=== PATIENT | male | born 1950 | race American Indian/Alaskan Native ===

== ENCOUNTER 2019-05-26 13:45 | Inpatient (IN) | payer BC, OTHER ==
[~2019-05-26] VITALS: Ht 162.6 cm; Wt 79.4 kg
[2019-05-26 13:45] VITALS: BP_SYST 103
[2019-05-26 14:13] LABS: BASOPHILS # (AUTO) 0.1 K/uL (0.0-0.2); BASOPHILS % (AUTO) 0.7 % (0.0-2.0); EOSINOPHILS # (AUTO) 0.5 K/uL (0.0-0.4); EOSINOPHILS % (AUTO) 6.5 % (0.0-4.0); HEMATOCRIT 39.4 % (36-54); LYMPHOCYTES # (AUTO) 2.6 K/uL (1.0-5.5); LYMPHOCYTES % (AUTO) 34.3 % (20.5-51.5); MEAN CORPUSCULAR HEMOGLOBIN 30 pg (27-31); MEAN CORPUSCULAR HGB CONC 33 % (32-36); MEAN CORPUSCULAR VOLUME 89 fL (79.0-98.0); MONOCYTES # (AUTO) 0.4 K/uL (0.0-1.0); MONOCYTES % (AUTO) 4.9 % (1.7-9.3); NEUTROPHILS # (AUTO) 4.1 K/uL (1.8-7.7); NEUTROPHILS % (AUTO) 53.6 % (40.0-70.0); PLATELET COUNT (AUTO) 198 K/uL (130-430); RED BLOOD CELL COUNT(AUTO) 4.41 MIL/uL (4.2-6.2); RED CELL DISTRIBUTION WIDTH 13.8 % (9.0-15.0); WHITE BLOOD COUNT (AUTO) 7.7 K/uL (4.8-10.8)
[2019-05-26 14:28] LABS: CALCIUM 8.8 mg/dL (8.4-11.0); CREATININE 1.24 mg/dL (0.55-1.30); POTASSIUM 4.4 mmol/L (3.5-5.1)
[2019-05-26 14:29] LABS: INR 1.2 (0.80-1.20); PROTHROMBIN TIME 12.1 SECS (9.5-12.5)
[2019-05-26 14:34] LABS: ALBUMIN 3.5 g/dL (3.4-4.8); TOTAL BILIRUBIN 0.3 mg/dL (0.0-1.0)
[2019-05-26 14:55] LABS: BILIRUBIN,URINE NEGATIVE (NEGATIVE); BLOOD, URINE NEGATIVE (NEGATIVE); CLARITY/URINE CLEAR (CLEAR); COLOR,URINE YELLOW (YELLOW); GLUCOSE,URINE NEGATIVE (NEGATIVE); KETONES,URINE NEGATIVE (NEGATIVE); LEUKOCYTE ESTERASE ,URINE NEGATIVE (NEGATIVE); NITRITE, URINE NEGATIVE (NEGATIVE); PH,URINE 7.5 (5.0-8.0); PROTEIN URINE 2+ (NEGATIVE); UROBILINOGEN,URINE 0.2 (0.2-1.0)
[2019-05-26] MEDS ORDERED: MAGNESIUM SULFATE 4 GM in D5W 250 ML IV ONE (15:00)
[2019-05-26] MEDS ORDERED: NITROGLYCERIN 1 INCH (GM) OINT. TP ONE (15:00)
[2019-05-26] MEDS ORDERED: ASPIRIN 81 MG TAB.CHEW PO ONE (15:00)
[2019-05-26] MEDS ORDERED: MAGNESIUM SULFATE 1 GM/2 ML VIAL ONE (15:16)
[2019-05-26 15:24] LABS: RBC,URINE NONE SEEN /HPF (0-3)
[2019-05-26 15:25] LABS: BACTERIA,URINE RARE /HPF (None Seen); HYALINE CASTS, URINE 0-10 /LPF (None Seen); WBC,URINE 0-3 /HPF (0-3)
[2019-05-26] MEDS ORDERED: ENOXAPARIN SODIUM 80 MG/0.8 ML SYRINGE SUBCUT ONE (16:00)
[2019-05-26 16:11] VITALS: BP_SYST 119
[2019-05-26] MEDS ORDERED: METO-540 PO (16:20)
[2019-05-26] MEDS ORDERED: SYN50 PO (16:20)
[2019-05-26] MEDS ORDERED: GLU500 PO (16:20)
[2019-05-26] MEDS ORDERED: GLIP10TA11 PO (16:20)
[2019-05-26] MEDS ORDERED: VALS80TA2 PO (16:20)
[2019-05-26 20:00] VITALS: BP_SYST 115
[2019-05-26] MEDS ORDERED: TAMSULOSIN HCL 0.4 MG CAP PO SCH (21:00)
[2019-05-26] MEDS ORDERED: *LOVENOX 1MG/KG Q12H/PHARMACY XX SCH (21:00)
[2019-05-26] MEDS ORDERED: DIPHENHYDRAMINE HCL 25 MG CAPSULE PO ONE (23:00)
[2019-05-26] MEDS ORDERED: ONDANSETRON HCL 4 MG/2 ML VIAL IVP PRN (23:00)
[2019-05-26] MEDS ORDERED: LORazepam 2 MG/ML VIAL IVP PRN (23:00)
[2019-05-26] MEDS ORDERED: HYDROcodone/ACETAMIN 10-325 MG TAB PO PRN (23:00)
[2019-05-26] MEDS ORDERED: MORPHINE 2 MG/ML INJ. SYRINGE IVP PRN (23:00)
[2019-05-26] MEDS ORDERED: INSULIN REGULAR, HUMAN 100 UNITS/ML, 10 ML VIAL (humuLIN R) SUBCUT PRN (23:00)
[2019-05-26] MEDS ORDERED: HYDROcodone/ACETAMIN 5-325 MG TAB (NORCO/ VICODIN) PO PRN (23:00)
[2019-05-26] MEDS ORDERED: ACETAMINOPHEN 325 MG TABLET PO PRN (23:00)
[2019-05-26] MEDS ORDERED: TAMS-11 PO (23:21)
[2019-05-26] MEDS ORDERED: DIPH25CA83 PO (23:21)
[2019-05-26] MEDS: LOSARTAN POTASSIUM 50 MG TABLET (COZAAR) PO SCH (23:30)
[2019-05-27 00:40] VITALS: BP_SYST 134
[2019-05-27] MEDS ORDERED: NORMAL SALINE 5 ML DISP.SYRIN IVF SCH ×2 (06:00)
[2019-05-27] MEDS ORDERED: ENOXAPARIN SODIUM 80 MG/0.8 ML SYRINGE SUBCUT SCH (06:00)
[2019-05-27 06:53] LABS: BASOPHILS % (AUTO) 0.7 % (0.0-2.0); EOSINOPHILS # (AUTO) 0.5 K/uL (0.0-0.4); EOSINOPHILS % (AUTO) 8.5 % (0.0-4.0); HEMATOCRIT 37.5 % (36-54); HEMOGLOBIN 12.4 g/dL (14.0-18.0); LYMPHOCYTES # (AUTO) 2.7 K/uL (1.0-5.5); LYMPHOCYTES % (AUTO) 43.7 % (20.5-51.5); MEAN CORPUSCULAR HEMOGLOBIN 29 pg (27-31); MEAN CORPUSCULAR HGB CONC 33 % (32-36); MEAN CORPUSCULAR VOLUME 89 fL (79.0-98.0); MONOCYTES # (AUTO) 0.4 K/uL (0.0-1.0); MONOCYTES % (AUTO) 5.9 % (1.7-9.3); NEUTROPHILS # (AUTO) 2.6 K/uL (1.8-7.7); NEUTROPHILS % (AUTO) 41.2 % (40.0-70.0); PLATELET COUNT (AUTO) 183 K/uL (130-430); RED BLOOD CELL COUNT(AUTO) 4.21 MIL/uL (4.2-6.2); RED CELL DISTRIBUTION WIDTH 13.5 % (9.0-15.0); WHITE BLOOD COUNT (AUTO) 6.2 K/uL (4.8-10.8)
[2019-05-27] MEDS ORDERED: LEVOTHYROXINE SODIUM 0.05 MG TABLET PO SCH (07:00)
[2019-05-27] MEDS ORDERED: metFORMIN HCL 500 MG TABLET PO SCH (08:00)
[2019-05-27 08:47] LABS: CALCIUM 8.8 mg/dL (8.4-11.0); CREATININE 0.98 mg/dL (0.55-1.30); PHOSPHORUS 3.8 mg/dL (2.7-4.5); POTASSIUM 4.4 mmol/L (3.5-5.1)
[2019-05-27] MEDS: LOSARTAN POTASSIUM 50 MG TABLET (COZAAR) PO SCH (08:52)
[2019-05-27] MEDS ORDERED: METOPROLOL SUCCINATE 25 MG TAB.SR.24H (TOPROL XL) PO SCH (09:00)
[2019-05-27] MEDS ORDERED: DEXTROSE 50%-WATER 50 ML DISP.SYRIN IVP PRN (10:45)
[2019-05-27] MEDS ORDERED: GLUCOSE 15 GM GEL (in 37.5 GM TUBE) PO PRN (10:45)
[2019-05-27] MEDS ORDERED: D5W 1,000 ML IV PRN (10:45)
[2019-05-27 12:00] VITALS: BP_SYST 131
[2019-05-27] MEDS ORDERED: ASPI-1153 PO (12:06)
[2019-05-27 15:10] VITALS: BP_SYST 144
[2019-05-27 16:41] VITALS: BP_SYST 144
[2019-05-27] MEDS ORDERED: TAMSULOSIN HCL 0.4 MG CAP PO SCH (21:00)
== END 2019-05-27 15:40 | disposition home or self-care (01) | DRG 206 ==
LOC: SED 13:45 → STU 15:22
PROVIDERS: ADMIT Preventive Medicine Preventive Medicine/Occupational Environmental Medicine; ATTEND Preventive Medicine Preventive Medicine/Occupational Environmental Medicine
DX: M94.0 Chondrocostal junction syndrome [Tietze] (principal); I47.1 Supraventricular tachycardia; I24.9 Acute ischemic heart disease, unspecified; I47.2 Ventricular tachycardia; E03.9 Hypothyroidism, unspecified; E11.9 Type 2 diabetes mellitus without complications; E78.00 Pure hypercholesterolemia, unspecified; E78.5 Hyperlipidemia, unspecified; I10 Essential (primary) hypertension; J44.9 Chronic obstructive pulmonary disease, unspecified; R07.89 Other chest pain; Z88.8 Allergy status to other drugs, medicaments and biological substances; Z79.899 Other long term (current) drug therapy
CPT/HCPCS: 36415; 71045; 80048; 80053; 81000-TC; 82962; 83735-TC; 83880; 84100-TC; 84484; 85025; 85610-TC; 93005; 93306; 96365; 96366; 99285; G0378; J1650; J1815; J3475; Q0163

== ENCOUNTER 2021-12-01 22:08 | Emergency (ER) | payer OTHER, MEDICAID ==
[~2021-12-01] VITALS: Ht 160 cm; Wt 77.1 kg
[~2021-12-01 22:08] MED LIST: ASPI-1393 PO; DIPH25CA83 PO; GLIP10TA11 PO; GLU500 PO; METO-540 PO; SYN50 PO; TAMS-11 PO; VALS80TA2 PO
[2021-12-01 22:10] VITALS: BP_SYST 79
--- NOTE | 2021-12-01 22:10 | NUR ---
Placed in room 01 . Placed on cigar making machine operator, blood pressure machine and pulse oximeter. To gown for exam. Side rails up.
--- NOTE | 2021-12-01 22:45 | NUR ---
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
[2021-12-01] MEDS ORDERED: ADENOSINE 6MG/2ML VIAL ONE (22:52)
--- NOTE | 2021-12-01 23:00 | NUR ---
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
--- NOTE | 2021-12-01 23:00 | NUR ---
PT HR NS AT 95, EKG DONE, PT ON SEAM PRESS OPERATOR.
[2021-12-01] MEDS ORDERED: ADENOSINE 6MG/2ML VIAL IVP ONE (23:15)
[2021-12-01 23:27] LABS: ANION GAP 5 (5-15); BASOPHILS # (AUTO) 0.1 K/uL (0.0-0.2); BASOPHILS % (AUTO) 0.6 % (0.0-2.0); CALCIUM 9.2 mg/dL (8.4-11.0); CHLORIDE 96 mmol/L (98-107); CREATININE 1.19 mg/dL (0.55-1.30); EOSINOPHILS # (AUTO) 0.4 K/uL (0.0-0.4); EOSINOPHILS % (AUTO) 3.3 % (0.0-4.0); GLUCOSE 241 mg/dL (70-99); HEMATOCRIT 40.6 % (36-54); HEMOGLOBIN 13.5 g/dL (14.0-18.0); LYMPHOCYTES # (AUTO) 6.2 K/uL (1.0-5.5); LYMPHOCYTES % (AUTO) 53.3 % (20.5-51.5); MEAN CORPUSCULAR HEMOGLOBIN 29 pg (27-31); MEAN CORPUSCULAR HGB CONC 33 % (32-36); MEAN CORPUSCULAR VOLUME 87 fL (79.0-98.0); MONOCYTES # (AUTO) 0.7 K/uL (0.0-1.0); MONOCYTES % (AUTO) 5.8 % (1.7-9.3); NEUTROPHILS # (AUTO) 4.3 K/uL (1.8-7.7); PLATELET COUNT (AUTO) 248 K/uL (130-430); POTASSIUM 4.4 mmol/L (3.5-5.1); RED BLOOD CELL COUNT(AUTO) 4.69 MIL/uL (4.2-6.2); RED CELL DISTRIBUTION WIDTH 13.1 % (9.0-15.0); SODIUM SERUM 132 mmol/L (136-145); UREA NITROGEN, BLOOD 15 mg/dL (8-21); WHITE BLOOD COUNT (AUTO) 11.6 K/uL (4.8-10.8)
[2021-12-01 23:37] LABS: ALANINE AMINOTRANSFERASE 53 U/L (12-78); ALBUMIN 3.6 g/dL (3.4-4.8); ASPARTATE AMINOTRANSFERASE 40 U/L (10-37); TOTAL BILIRUBIN 0.4 mg/dL (0.0-1.0)
--- NOTE | 2021-12-01 23:40 | NUR ---
PT SPEAKING IN COMPLETE SENTENCES, PT STATES HE FEELS FINE AND READY TO GO HOME.
[2021-12-02 00:28] LABS: BILIRUBIN,URINE NEGATIVE (NEGATIVE); BLOOD, URINE NEGATIVE (NEGATIVE); CLARITY/URINE CLEAR (CLEAR); COLOR,URINE YELLOW (YELLOW); GLUCOSE,URINE NEGATIVE (NEGATIVE); KETONES,URINE NEGATIVE (NEGATIVE); LEUKOCYTE ESTERASE ,URINE NEGATIVE (NEGATIVE); NITRITE, URINE NEGATIVE (NEGATIVE); PROTEIN URINE NEGATIVE (NEGATIVE); UROBILINOGEN,URINE 0.2 (0.2-1.0)
--- NOTE | 2021-12-02 01:21 | NUR ---
PT AMBULATED TO RESTROOM WITH UPRIGHT STEADY GAIT.
[2021-12-02] MEDS ORDERED: METO25TA6 PO (01:47)
--- NOTE | 2021-12-02 02:18 | NUR ---
Patient given written and verbal discharge instructions and verbalizes understanding. ER MD discussed with patient the results and treatment provided. Patient in stable condition. ID arm band removed. IV catheter removed intact and dressing applied, no active bleeding. Rx of METOPROLOL given. Patient educated on pain management and to follow up with PMD. Pain Scale 0. Opportunity for questions provided and answered. Medication side effect fact sheet provided.
[2021-12-02 02:46] VITALS: BP_SYST 122
== END 2021-12-02 02:17 | disposition home or self-care (01) ==
LOC: SED 22:08
DX: I47.1 Supraventricular tachycardia (principal); R00.2 Palpitations; R06.02 Shortness of breath; J44.9 Chronic obstructive pulmonary disease, unspecified; J45.909 Unspecified asthma, uncomplicated; E11.9 Type 2 diabetes mellitus without complications; I10 Essential (primary) hypertension; Z88.1 Allergy status to other antibiotic agents; Z79.899 Other long term (current) drug therapy
CPT/HCPCS: 99291; 96374; 80053; 83880; 85025; 84484; 36415; 71045; 81003; J0153

== ENCOUNTER 2022-06-30 18:07 | Emergency (ER) | payer OTHER, MEDICAID ==
[~2022-06-30] VITALS: Ht 160 cm; Wt 79.4 kg
[~2022-06-30 18:07] MED LIST changes: +METO25TA6 PO
--- NOTE | 2022-06-30 18:10 | NUR ---
PT BIBA AWAKE AND ALERT AOX4. NO SOB OR DISTRESS. PT C/O CHEST PAIN AT 1700 WHILE AT HOME SITTING. PT CALLED 911, ON SCENE PT HR WAS 170 WITH SVT. ON MARIE PT WAS GIVEN 6 MG OF ADENOSINE, THEN 12 MG OF ADENOSINE. AFTER THE SECOND DOSE PT HEART RATE CONVERTED TO 105. PT DENIES PAIN AT BEDSIDE. PT HAS HX OF SVT, STATING THIS IS HIS THIRD EPISODE.
[2022-06-30] MEDS ORDERED: NACL 0.9% 1,000 ML IV ONE (18:15)
--- NOTE | 2022-06-30 18:15 | NUR ---
MD DR BOCANEGRA AT BEDSIDE
[2022-06-30 18:16] VITALS: BP_SYST 115
--- NOTE | 2022-06-30 18:16 | NUR ---
Placed in room 01 . Placed on neurology specialist, blood pressure machine and pulse oximeter. To gown for exam. Side rails up. Report given to VIDYA COLLIER.
[2022-06-30 18:46] LABS: BASOPHILS % (AUTO) 0.4 % (0.0-2.0); EOSINOPHILS # (AUTO) 0.2 K/uL (0.0-0.4); EOSINOPHILS % (AUTO) 3.1 % (0.0-4.0); HEMATOCRIT 36.8 % (36-54); HEMOGLOBIN 12.7 g/dL (14.0-18.0); LYMPHOCYTES # (AUTO) 2.9 K/uL (1.0-5.5); LYMPHOCYTES % (AUTO) 42.5 % (20.5-51.5); MEAN CORPUSCULAR HEMOGLOBIN 30 pg (27-31); MEAN CORPUSCULAR HGB CONC 34 % (32-36); MEAN CORPUSCULAR VOLUME 86 fL (79.0-98.0); MONOCYTES # (AUTO) 0.5 K/uL (0.0-1.0); MONOCYTES % (AUTO) 7.2 % (1.7-9.3); NEUTROPHILS # (AUTO) 3.2 K/uL (1.8-7.7); NEUTROPHILS % (AUTO) 46.8 % (40.0-70.0); PLATELET COUNT (AUTO) 172 K/uL (130-430); RED BLOOD CELL COUNT(AUTO) 4.28 MIL/uL (4.2-6.2); RED CELL DISTRIBUTION WIDTH 13.6 % (9.0-15.0); WHITE BLOOD COUNT (AUTO) 6.8 K/uL (4.8-10.8)
[2022-06-30 19:05] LABS: ANION GAP 4 (5-15); CALCIUM 8.4 mg/dL (8.4-11.0); CHLORIDE 99 mmol/L (98-107); CREATININE 1.11 mg/dL (0.55-1.30); GLUCOSE 125 mg/dL (70-99); UREA NITROGEN, BLOOD 14 mg/dL (8-21)
[2022-06-30 19:13] LABS: ALANINE AMINOTRANSFERASE 39 U/L (12-78); ALBUMIN 3.4 g/dL (3.4-4.8); ASPARTATE AMINOTRANSFERASE 23 U/L (10-37); TOTAL BILIRUBIN 0.3 mg/dL (0.0-1.0)
[2022-06-30 19:50] VITALS: BP_SYST 114
--- NOTE | 2022-06-30 19:50 | NUR ---
Patient given written and verbal discharge instructions and verbalizes understanding. ER MD discussed with patient the results and treatment provided. Patient in stable condition. ID arm band removed. IV catheter removed intact and dressing applied, no active bleeding. Patient educated on pain management and to follow up with PMD. Pain Scale 0/10 Opportunity for questions provided and answered.
== END 2022-06-30 19:50 | disposition home or self-care (01) ==
LOC: SED 18:07
DX: I47.1 Supraventricular tachycardia (principal); R00.2 Palpitations; J44.9 Chronic obstructive pulmonary disease, unspecified; E11.9 Type 2 diabetes mellitus without complications; I10 Essential (primary) hypertension; Z88.8 Allergy status to other drugs, medicaments and biological substances; Z79.899 Other long term (current) drug therapy
CPT/HCPCS: 99284; 96360; 71045; 80053; 83880; 85025; 84484; 36415; J7030; 93005

== ENCOUNTER 2022-07-28 19:08 | Emergency (ER) | payer OTHER, MEDICAID ==
[~2022-07-28] VITALS: Ht 160 cm; Wt 80.7 kg
[2022-07-28 19:15] VITALS: BP_SYST 101
[2022-07-28 20:03] LABS: BASOPHILS % (AUTO) 0.2 % (0.0-2.0); EOSINOPHILS # (AUTO) 0.2 K/uL (0.0-0.4); EOSINOPHILS % (AUTO) 2.1 % (0.0-4.0); HEMATOCRIT 39.6 % (36-54); HEMOGLOBIN 13.3 g/dL (14.0-18.0); LYMPHOCYTES # (AUTO) 3.8 K/uL (1.0-5.5); LYMPHOCYTES % (AUTO) 44.1 % (20.5-51.5); MEAN CORPUSCULAR HEMOGLOBIN 29 pg (27-31); MEAN CORPUSCULAR HGB CONC 34 % (32-36); MEAN CORPUSCULAR VOLUME 86 fL (79.0-98.0); MONOCYTES # (AUTO) 0.6 K/uL (0.0-1.0); MONOCYTES % (AUTO) 6.5 % (1.7-9.3); NEUTROPHILS # (AUTO) 4.1 K/uL (1.8-7.7); NEUTROPHILS % (AUTO) 47.1 % (40.0-70.0); PLATELET COUNT (AUTO) 186 K/uL (130-430); RED BLOOD CELL COUNT(AUTO) 4.61 MIL/uL (4.2-6.2); RED CELL DISTRIBUTION WIDTH 14.1 % (9.0-15.0); WHITE BLOOD COUNT (AUTO) 8.7 K/uL (4.8-10.8)
[2022-07-28 20:07] LABS: ANION GAP 9 (5-15); CALCIUM 8.4 mg/dL (8.4-11.0); CHLORIDE 95 mmol/L (98-107); CREATININE 1.12 mg/dL (0.55-1.30); GLUCOSE 207 mg/dL (70-99); UREA NITROGEN, BLOOD 16 mg/dL (8-21)
[2022-07-28 20:19] LABS: ALANINE AMINOTRANSFERASE 45 U/L (12-78); ALBUMIN 3.5 g/dL (3.4-4.8); ASPARTATE AMINOTRANSFERASE 34 U/L (10-37); PHOSPHORUS 4.1 mg/dL (2.7-4.5); TOTAL BILIRUBIN 0.4 mg/dL (0.0-1.0)
[2022-07-28 21:42] VITALS: BP_SYST 99
== END 2022-07-28 21:42 | disposition home or self-care (01) ==
LOC: SED 19:08
DX: I47.1 Supraventricular tachycardia (principal); R00.2 Palpitations; J44.9 Chronic obstructive pulmonary disease, unspecified; E11.9 Type 2 diabetes mellitus without complications; I10 Essential (primary) hypertension; Z88.1 Allergy status to other antibiotic agents; Z79.899 Other long term (current) drug therapy
CPT/HCPCS: 36415; 71045; 80053; 83735; 83880; 84100; 84443; 84484; 85025; 99284

== ENCOUNTER 2022-08-23 11:35 | Emergency (ER) | payer OTHER, MEDICAID ==
[~2022-08-23] VITALS: Ht 160 cm; Wt 86.2 kg
[2022-08-23 11:43] VITALS: BP_SYST 134
[2022-08-23] MEDS ORDERED: METO50TA7 PO (12:35)
[2022-08-23 13:40] VITALS: BP_SYST 135
== END 2022-08-23 13:40 | disposition home or self-care (01) ==
LOC: SED 11:35
DX: I47.1 Supraventricular tachycardia (principal); J44.9 Chronic obstructive pulmonary disease, unspecified; E11.9 Type 2 diabetes mellitus without complications; I10 Essential (primary) hypertension; Z79.899 Other long term (current) drug therapy
CPT/HCPCS: 93005; 99283

== ENCOUNTER 2022-09-15 12:07 | Emergency (ER) | payer OTHER, MEDICAID ==
[~2022-09-15] VITALS: Ht 160 cm; Wt 88.0 kg
[~2022-09-15 12:07] MED LIST changes: +METO50TA7 PO
[2022-09-15 12:11] VITALS: BP_SYST 117
--- NOTE | 2022-09-15 12:11 | NUR ---
Placed in room 08 . Placed on front desk monitor, blood pressure machine and pulse oximeter. To gown for exam. Side rails up. Report given to VIDYA OBRIEN.
--- NOTE | 2022-09-15 12:12 | NUR ---
Pt brought by ALS, Yuriy&Ox4, pt presents to ER with tachycardia 101, per EMS pt was on SVT prior arrival and was given Adenosin 12mg, also episode of low BP, current BP 117/60, skin pink and warm, respirations even and unlabored, denies pain, will cont to monitor.
--- NOTE | 2022-09-15 12:25 | NUR ---
ER DR. HERNADEZ AT THE BEDSIDE EXAMINING PT
--- NOTE | 2022-09-15 12:39 | NUR ---
PORTABLE XRAY AT THE BEDSIDE
--- NOTE | 2022-09-15 12:47 | NUR ---
LAB AT THE BEDSIDE FOR BLOOD DRAW
[2022-09-15 13:01] LABS: BASOPHILS % (AUTO) 0.6 % (0.0-2.0); EOSINOPHILS # (AUTO) 0.2 K/uL (0.0-0.4); EOSINOPHILS % (AUTO) 3.3 % (0.0-4.0); HEMATOCRIT 36.5 % (36-54); HEMOGLOBIN 12.4 g/dL (14.0-18.0); LYMPHOCYTES # (AUTO) 2.3 K/uL (1.0-5.5); LYMPHOCYTES % (AUTO) 32.1 % (20.5-51.5); MEAN CORPUSCULAR HEMOGLOBIN 29 pg (27-31); MEAN CORPUSCULAR HGB CONC 34 % (32-36); MEAN CORPUSCULAR VOLUME 86 fL (79.0-98.0); MONOCYTES # (AUTO) 0.5 K/uL (0.0-1.0); MONOCYTES % (AUTO) 6.5 % (1.7-9.3); NEUTROPHILS # (AUTO) 4.1 K/uL (1.8-7.7); NEUTROPHILS % (AUTO) 57.5 % (40.0-70.0); PLATELET COUNT (AUTO) 167 K/uL (130-430); RED BLOOD CELL COUNT(AUTO) 4.25 MIL/uL (4.2-6.2); WHITE BLOOD COUNT (AUTO) 7.2 K/uL (4.8-10.8)
--- NOTE | 2022-09-15 13:20 | NUR ---
Echo at bedside
[2022-09-15 13:21] LABS: ANION GAP 4 (5-15); CALCIUM 7.8 mg/dL (8.4-11.0); CHLORIDE 93 mmol/L (98-107); CREATININE 0.96 mg/dL (0.55-1.30); GLUCOSE 163 mg/dL (70-99); UREA NITROGEN, BLOOD 13 mg/dL (8-21)
[2022-09-15 13:34] LABS: ALANINE AMINOTRANSFERASE 48 U/L (12-78); ALBUMIN 3.3 g/dL (3.4-4.8); ASPARTATE AMINOTRANSFERASE 33 U/L (10-37); FREE T4 (FREE THYROXINE) 0.7 ng/dL (0.6-1.6); PHOSPHORUS 3.3 mg/dL (2.7-4.5); THYROID STIMULATING HORMONE 2.33 uIu/mL (0.34-4.82); TOTAL BILIRUBIN 0.3 mg/dL (0.0-1.0)
--- NOTE | 2022-09-15 13:50 | NUR ---
MD STATED PATIENT REQUESTED TO GO HOME & REQUESTED NURSE TO ASSIST PATIENT TO AMBULATE IN ROOM D/T LOW BP. ASSISTED PATIENT TO SEATED POSITION AND WAIT BEFORE STANDING, ASSESSING FOR DIZZINESS AND DECREASE IN BP. ALLOWED PATIENT TO AMBULATE INSIDE ROOM. PATIENT STATED HE FELT SLIGHTLY DIZZY AND WOULD LIKE "TEN MORE MINUTES" PRIOR TO DISCHARGE. NO SIGNIFICANT CHANGES IN BP NOTED. MD MADE AWARE.
[2022-09-15] MEDS ORDERED: NACL 0.9% 1,000 ML IV ONE (14:00)
--- NOTE | 2022-09-15 15:44 | NUR ---
Crane juice given to patient at this time, well tolerated
--- NOTE | 2022-09-15 15:46 | NUR ---
Pt A&Ox4, VSS, respirations even and unlabored
[2022-09-15 15:58] VITALS: BP_SYST 105
--- NOTE | 2022-09-15 15:58 | NUR ---
Patient given written and verbal discharge instructions and verbalizes understanding. ER MD discussed with patient the results and treatment provided. Patient in stable condition. ID arm band removed. IV catheter removed intact and dressing applied, no active bleeding. Patient educated on SVT management and to follow up with PMD. Pain Scale 0/10. Opportunity for questions provided and answered. Patient assisted into UBER vehicle and seatbelt applied.
== END 2022-09-15 15:58 | disposition home or self-care (01) ==
LOC: SED 12:07
DX: R07.89 Other chest pain (principal); J44.9 Chronic obstructive pulmonary disease, unspecified; E11.9 Type 2 diabetes mellitus without complications; I10 Essential (primary) hypertension; Z88.1 Allergy status to other antibiotic agents; Z79.899 Other long term (current) drug therapy
CPT/HCPCS: 99285; 96360; 71045; 80053; 82962; 83880; 84439; 83735; 84100; 84443; 85025; 84484; 36415; 93005; J7030

== ENCOUNTER 2022-10-20 16:34 | Inpatient (IN) | payer OTHER, MEDICAID ==
[~2022-10-20] VITALS: Ht 160 cm; Wt 88.2 kg
[2022-10-20 16:39] VITALS: BP_SYST 94; PULSE 60; RESP 18; TEMP 98.1; O2SAT 94
[2022-10-20] MEDS ORDERED: ONDANSETRON HCL 4 MG/2 ML VIAL IVP ONE (17:30)
[2022-10-20 17:36] LABS: BASOPHILS % (AUTO) 0.3 % (0.0-2.0); EOSINOPHILS # (AUTO) 0.2 K/uL (0.0-0.4); EOSINOPHILS % (AUTO) 2.5 % (0.0-4.0); HEMATOCRIT 38.2 % (36-54); HEMOGLOBIN 12.6 g/dL (14.0-18.0); LYMPHOCYTES # (AUTO) 2.7 K/uL (1.0-5.5); MEAN CORPUSCULAR HEMOGLOBIN 29 pg (27-31); MEAN CORPUSCULAR HGB CONC 33 % (32-36); MEAN CORPUSCULAR VOLUME 87 fL (79.0-98.0); MONOCYTES # (AUTO) 0.6 K/uL (0.0-1.0); MONOCYTES % (AUTO) 6.7 % (1.7-9.3); NEUTROPHILS # (AUTO) 5.5 K/uL (1.8-7.7); NEUTROPHILS % (AUTO) 60.5 % (40.0-70.0); PLATELET COUNT (AUTO) 207 K/uL (130-430); RED CELL DISTRIBUTION WIDTH 13.7 % (9.0-15.0); WHITE BLOOD COUNT (AUTO) 9.1 K/uL (4.8-10.8)
[2022-10-20 17:52] LABS: INR 1.3 (0.80-1.20); PROTHROMBIN TIME 13.3 SECS (9.5-12.5)
[2022-10-20] MEDS ORDERED: NACL 0.9% 1,000 ML IV ONE (18:00)
[2022-10-20 18:06] LABS: ALANINE AMINOTRANSFERASE 35 U/L (12-78); ALBUMIN 3.3 g/dL (3.4-4.8); ANION GAP 6 (5-15); ASPARTATE AMINOTRANSFERASE 26 U/L (10-37); CALCIUM 8.4 mg/dL (8.4-11.0); CARBON DIOXIDE 28 mmol/L (23-29); CHLORIDE 98 mmol/L (98-107); GLUCOSE 142 mg/dL (74-106); POTASSIUM 4.3 mmol/L (3.5-5.1); SODIUM SERUM 132 mmol/L (136-145); TOTAL BILIRUBIN 0.3 mg/dL (0.0-1.0); TOTAL PROTEIN, SERUM 6.2 g/dL (6.4-8.3); UREA NITROGEN, BLOOD 14 mg/dL (8-21)
[2022-10-20 18:10] LABS: LIPASE 100 U/L (73-393)
[2022-10-20] MEDS ORDERED: ALBMDI INH (19:12)
[2022-10-20] MEDS ORDERED: ROSU20TA2 PO (19:12)
[2022-10-20] MEDS ORDERED: DULA1.5P SQ (19:12)
[2022-10-20] MEDS ORDERED: HUM10VIA SUBCUT (19:12)
[2022-10-20] MEDS ORDERED: TOPXL100 PO (19:29)
[2022-10-20] MEDS: NACL 0.9% 1,000 ML IV SCH (19:38)
[2022-10-20 21:00] VITALS: BP_SYST 116; PULSE 60; RESP 16; TEMP 96.4; O2SAT 98
[2022-10-20] MEDS ORDERED: GLUCOSE (DEXTROSE) ORAL GEL -Adults PO PRN (21:30)
[2022-10-20] MEDS ORDERED: DIPHENHYDRAMINE INJ 50 MG/ML VIAL IVP PRN (21:30)
[2022-10-20] MEDS ORDERED: DEXTROSE 50% JECT 50 ML DISP.SYRIN IVP PRN (21:30)
[2022-10-20] MEDS ORDERED: ONDANSETRON HCL 4 MG/2 ML VIAL IVP PRN (21:30)
[2022-10-20] MEDS ORDERED: D5W 1,000 ML IV PRN (21:30)
[2022-10-20] MEDS ORDERED: ACETAMINOPHEN 325 MG TABLET PO PRN (21:30)
[2022-10-20] MEDS ORDERED: INSULIN NPH 100 UNITS/ML 10 ML VIAL SUBCUT SCH (21:30)
[2022-10-20] MEDS ORDERED: INSULIN REGULAR, HUMAN 100 UNITS/ML, 3 ML VIAL (humuLIN R) SUBCUT PRN (22:30)
[2022-10-21 00:30] VITALS: BP_SYST 117; PULSE 59; RESP 18; TEMP 98.4; O2SAT 98
[2022-10-21 00:45] VITALS: BP_SYST 117; PULSE 59; RESP 18; TEMP 98.4; O2SAT 98
[2022-10-21 05:54] LABS: BASOPHILS % (AUTO) 0.3 % (0.0-2.0); EOSINOPHILS # (AUTO) 0.2 K/uL (0.0-0.4); EOSINOPHILS % (AUTO) 2.7 % (0.0-4.0); HEMATOCRIT 35.4 % (36-54); HEMOGLOBIN 11.8 g/dL (14.0-18.0); LYMPHOCYTES % (AUTO) 41.7 % (20.5-51.5); MEAN CORPUSCULAR HEMOGLOBIN 29 pg (27-31); MEAN CORPUSCULAR HGB CONC 34 % (32-36); MEAN CORPUSCULAR VOLUME 87 fL (79.0-98.0); MONOCYTES # (AUTO) 0.5 K/uL (0.0-1.0); MONOCYTES % (AUTO) 6.7 % (1.7-9.3); NEUTROPHILS # (AUTO) 3.5 K/uL (1.8-7.7); NEUTROPHILS % (AUTO) 48.6 % (40.0-70.0); PLATELET COUNT (AUTO) 166 K/uL (130-430); RED BLOOD CELL COUNT(AUTO) 4.09 MIL/uL (4.2-6.2); RED CELL DISTRIBUTION WIDTH 13.8 % (9.0-15.0); WHITE BLOOD COUNT (AUTO) 7.1 K/uL (4.8-10.8)
[2022-10-21 06:41] LABS: ANION GAP 6 (5-15); CARBON DIOXIDE 28 mmol/L (23-29); CHLORIDE 100 mmol/L (98-107); CREATININE 1.09 mg/dL (0.55-1.30); GLUCOSE 174 mg/dL (74-106); POTASSIUM 4.3 mmol/L (3.5-5.1); SODIUM SERUM 134 mmol/L (136-145); UREA NITROGEN, BLOOD 10 mg/dL (8-21)
[2022-10-21] MEDS ORDERED: INSULIN NPH/REGULAR 70-30, 100 UNITS/ML, 3 ML VIAL SUBCUT SCH ×2 (07:00)
[2022-10-21 08:00] VITALS: BP_SYST 134; PULSE 64; RESP 18; TEMP 97.4; O2SAT 99
[2022-10-21] MEDS: NACL 0.9% 1,000 ML IV SCH (09:33)
[2022-10-21 11:34] VITALS: BP_SYST 134; PULSE 68; RESP 16; TEMP 96.7; O2SAT 99
[2022-10-21 11:55] LABS: FREE T4 (FREE THYROXINE) 0.7 ng/dl (0.8-1.5); THYROID STIMULATING HORMONE 1.41 uIu/mL (0.36-3.74)
[2022-10-21 13:38] VITALS: BP_SYST 133; PULSE 70; RESP 20; TEMP 96.8; O2SAT 99
== END 2022-10-21 13:55 | disposition home or self-care (01) | DRG 309 ==
LOC: SED 16:34 → STU 18:11
PROVIDERS: ADMIT Specialist; ATTEND Specialist
DX: R00.1 Bradycardia, unspecified (principal); E44.1 Mild protein-calorie malnutrition; I95.9 Hypotension, unspecified; J45.909 Unspecified asthma, uncomplicated; E78.00 Pure hypercholesterolemia, unspecified; I48.91 Unspecified atrial fibrillation; Z79.01 Long term (current) use of anticoagulants; Z88.1 Allergy status to other antibiotic agents; Z88.0 Allergy status to penicillin; Z79.899 Other long term (current) drug therapy; Z79.82 Long term (current) use of aspirin; Z68.34 Body mass index [BMI] 34.0-34.9, adult; I11.9 Hypertensive heart disease without heart failure
CPT/HCPCS: 36415; 71045; 80048; 80053; 82962; 83605; 83690; 83880; 84439; 84443; 84484; 85025; 85379; 85610-TC; 85730-TC; 87040; 93005; 96361; 96374; 99285; G0378; J1815; J2405; J7030